=== PATIENT | male | born 1960 | race Caucasian/White ===

== ENCOUNTER 2021-03-13 09:50 | Observation (INO) ==
[2021-03-13 10:07] VITALS: BMI 25.7
--- NOTE | 2021-03-13 11:04 | DR.DIZZY ---
HPI Time seen Time Seen by Provider: 03/13/21 11:04 PCP Primary Care Physician: HPI Comment HPI Comment: PATIENT IS 61YR OLD MALE WITH HISTORY OF DM, HTN, CVA AND PREVIOUS CVA IN ER WITH DIZZINESS, GENERALIZED WEAKNESS, HEADACHE AND NEAR SYNCOPAL EPISODES TIMES 2 WEEKS. DENIES FEVER, DYSURIA, NAUSEA AND VOMITING AND DIARRHEA. Complaint Chief Complaint Doctor Comments: DIZZINESS, HEADACHE AND NEAR SYNCOPAL EPISODE WITH WEAKNESS TIMES 2 WEEKS. Chief Complaint:: PT C/O FEEKING LIKE HE IS GOING TO PASS OUT, DIZZINESS, & GENERALIZED WEAKNESS X2 WEEKS. UPON ARRIVAL PT'S BP IS LOW, PT STATES HE HAS HX OF HTN & TOOK BP MEDS. COVID-19 Coronavirus risk:travel/contact w/high risk person: No Has patient experienced Coronavirus symptoms: No Nurses Notes Reviewed Nurses Notes Review: Yes Source History Provided: Patient and Family Member Mode of Arrival Mode of Arrival: Ambulatory Timing Onset of Chief Complaint: 02/27/21 Came on: Suddenly Duration Duration: Constant Duration: Weeks Location of Weakness Weakness Location: Generalized Context Onset: At rest History of: CVA and DM Stroke Symptoms: Dizziness Severity Severity: Abnormal activity level Modifying factors Worsens: Change in Position Associated signs and symptoms Associated Signs and Symptoms: Near Syncope and Headache Other history Other history: DM, HTN, CAD, CVA. PMH PMH Past Medical History: Yes Past Medical History: Coronary Artery Disease, CVA, Diabetes, Dyslipidemia and Hypertension Past Surgical History: Yes Surgical History: Angioplasty/Stents Family History History of Family Medical Conditions: Yes Family Medical History: Diabetes Mellitus and Cancer Social History Do you use any recreational Drugs:: No Travel Risk Coronavirus risk:travel/contact w/high risk person: No Has patient experienced Coronavirus symptoms: No Infectious screening Have you traveled outside the country in the last 6 months?: No Isolation: Standard ROS Review of Systems Constitutional: See HPI, Weakness and Fatigue; negative Fever Eyes: No Symptoms Reported and See HPI; negative Blurred Vision and Diplopia ENTM: No Symptoms Reported and See HPI; negative Nose Discharge and Nose C ongestion Respiratoy: See HPI and Short of Breath; negative Moist Cough and Wheezing Cardiovascular: See HPI; negative Chest Pain, Edema and Syncope (NEAR SYNCOPE.) Gastrointestinal/Abdominal: No Symptoms Reported and See HPI; negative Abdominal Pain, Diarrhea, Nausea and Vomiting Genitourinary: No Symptoms Reported, See HPI, Dysuria and Hematuria Neurological: See HPI, Headache, Weakness and Dizziness Musculoskeletal: No Symptoms Reported and See HPI; negative Back Pain and Muscle Pain Integumentary: No Symptoms Reported and See HPI; negative Change in Color, Rash and Juandice Hematologic/Lymphatic: No Symptoms Reported and See HPI; negative Easy Bruising Endocrine: No Symptoms Reported and See HPI; negative Increased Thirst and Increased Urine Psychiatric: No Symptoms Reported and See HPI All Other Systems: Reviewed and Negative PE Vital Signs Vitals: Temperature 97.7 F Pulse Rate 61 Respiratory Rate 18 Blood Pressure [Left Arm] 165/84 Blood Pressure 142/73 O2 Sat by Pulse Oximetry 100 General Limitations: No Limitations General Appearance: Alert and In No Apparent Distress Head Head Exam: Normal Inspection, Atraumatic and Normocephalic Eyes Eye exam: Normal Appearance, PERRL and EOMI; negative Scleral Icterus and Conjunctival Injection Pupils: Regular, Round: Bilateral and Reactive: Bilateral Sclera/Conjunctival: Normal Inspection: Bilateral ENT ENT Exam: Normal Exam, Normal Oropharynx, Normal External Ear Exam and TM's Normal Bilaterally Neck Neck Exam: Normal Inspection, Full ROM and Trachea Midline; negative Tenderness Chest Chest Inspection: Normal Inspection and Symmetric Chest Wall Rise; negative Tenderness Respiratory Respiratory Exam: Normal Lung Sounds Bilat; negative Accessory Muscle Use, Chest Wall Tenderness and Respiratory Distress Respiratory Exam: Bilateral: Rhonchi and Lower: Rhonchi Cardiovascular Cardiovascular Exam: Regular Rate, Normal Rhythm and Normal Heart Sounds; negative Systolic Murmur and Diastolic Murmur Abdominal Exam Abdominal Exam: Normal Inspection, Normal Bowel Sounds and Soft; negative Tenderness Rectal Rectal Exam: Deferred Extremeties Extremities Exam: Normal Inspection, Full ROM and Normal Capillary Refill; negative Edema Back Back Exam: Normal Inspection and Full ROM; negative (R) CVA Tenderness and (L) CVA Tenderness Neurologic Neurological Exam: Alert and Oriented X3; negative Motor Sensory Deficit Patient Oriented To: Person, Place and Time Speech: Fluid Speech Cranial Nerve Exam: EOM Function (II, III, IV, ): Normal, Facial Sensation (V): Normal, Facial Palsy (VII): Normal, Gag reflex (XI): Normal and Tongue De viation: Normal Motor Strength - LUE: 5/5 Motor Strength - RUE: 5/5 Motor Strength - LLE: 5/5 Motor Strength - RLE: 5/5 Upper Motor Neuron Exam: Babinski Sign: Normal Psychiatric Psychiatric Exam: Normal Affect and Normal Mood Skin Skin Exam: Dry MDM Additional Information Obtained Additional Information Obtained From: Family Differential Diagnosis Differential Diagnosis: Anemia, CVA, Dehydration, Dysrhythmia, Electrolyte disorder, Hypoglycemia and Myocardial infarction COURSE Treatment Treatment: SEE ORDERS. Consultation Consultation Comments: PATIENT WILL BE ADMITTED TO DR. PEREZ. Education/Counseling Education/Counseling: Patient Educated On: Diagnosis ROR Labs Reviewed Laboratory Results Reviewed?: Yes Result Diagrams: 03/15/21 05:37 03/15/21 05:37 Laboratory: WBC 13.2 X10^3/uL (3.6-10.0) H 03/13/21 11:30 RBC 5.30 X10^6/uL (4.7-6.0) 03/13/21 11:30 Hgb 15.2 g/dL (13.5-18.0) 03/13/21 11:30 Hct 44.1 % (42.0-54.0) 03/13/21 11:30 MCV 83.2 fL (80.0-100.0) 03/13/21 11:30 MCH 28.6 pg (27.0-34.0) 03/13/21 11:30 MCHC 34.4 g/dL (33.0-35.0) 03/13/21 11:30 RDW 13.6 % (11.6-16.5) 03/13/21 11:30 Plt Count 339 X10^3/uL (150.0-450.0) 03/13/21 11:30 MPV 8.4 fL (7.4-11.0) 03/13/21 11:30 Neut % (Auto) 84.9 % (42.0-75.0) H 03/13/21 11:30 Lymph % (Auto) 8.0 % (21.0-51.0) L 03/13/21 11:30 [place] % (Auto) 4.2 % (0.0-13.0) 03/13/21 11:30 Eos % (Auto) 1.2 % (0.9-2.9) 03/13/21 11:30 Baso % (Auto) 1.7 % (0.2-1.0) H 03/13/21 11:30 Neut # (Auto) 11.2 x10^3/uL (2.2-4.8) H 03/13/21 11:30 Lymph # (Auto) 1.1 X10^3/uL (1.3-2.9) L 03/13/21 11:30 [place] # (Auto) 0.6 x10^3/uL (0.3-0.8) 03/13/21 11:30 Eos # (Auto) 0.2 x10^3/uL (0.0-0.2) 03/13/21 11:30 Baso # (Auto) 0.2 X10^3/uL (0.0-0.1) H 03/13/21 11:30 Absolute Nucleated RBC 0.0 /100WBC 03/13/21 11:30 Sodium 136 mmol/L (136-145) 03/13/21 11:30 Corrected Sodium 138 mmol/L (136-145) 03/13/21 11:30 Potassium 4.4 mmol/L (3.5-5.1) 03/13/21 11:30 Chloride 99 mmol/L (98-107) 03/13/21 11:30 Carbon Dioxide 29.5 mmol/L (21-32) 03/13/21 11:30 BUN 27 mg/dL (7-18) H 03/13/21 11:30 Creatinine 1.52 mg/dL (0.70-1.30) H 03/13/21 11:30 Est GFR (MDRD) Af Amer 60 (>60) 03/13/21 11:30 Est GFR (MDRD) Non-Af 49 (>60) L 03/13/21 11:30 Glucose 163 mg/dL (65-99) H 03/13/21 11:30 Calcium 9.4 mg/dL (8.5-10.1) 03/13/21 11:30 Corrected Calcium TNP 03/13/21 11:30 Total Bilirubin 0.80 mg/dL (0.2-1.0) 03/13/21 11:30 AST 14 Units/L (15-37) L 03/13/21 11:30 ALT 24 Units/L (12-78) 03/13/21 11:30 Alkaline Phosphatase 93 Units/L (46-116) 03/13/21 11:30 Creatine Kinase 30 Units/L (39-308) L 03/13/21 11:30 CK-MB (CK-2) < 1.0 ng/mL (0-4.0) 03/13/21 11:30 CK/CKMB % Calc 3.3 % (<4) 03/13/21 11:30 Troponin I < 0.02 ng/mL (0-1.5) 03/13/21 11:30 Total Protein 7.4 g/dL (6.4-8.2) 03/13/21 11:30 Albumin 3.4 g/dL (3.4-5.0) 03/13/21 11:30 Globulin 4.0 g/dL (2.5-4.5) 03/13/21 11:30 Albumin/Globulin Ratio 0.9 Ratio (1.1-2.1) L 03/13/21 11:30 Specimen Type Clean catch urine 03/13/21 11:25 Urine Color Yellow (YELLOW) 03/13/21 11:25 Urine Appearance Clear (CLEAR) 03/13/21 11:25 Urine pH 5.0 (5.0 - 8.0) 03/13/21 11:25 Ur Specific [place] 1.015 (1.000-1.030) 03/13/21 11:25 Urine Protein Negative (NEGATIVE) 03/13/21 11:25 Urine Glucose (UA) Negative (NEGATIVE) 03/13/21 11:25 Urine Ketones Negative (NEGATIVE) 03/13/21 11:25 Urine Occult Blood Negative (NEGATIVE) 03/13/21 11:25 Urine Nitrite Negative (NEGATIVE) 03/13/21 11:25 Urine Bilirubin Negative (NEGATIVE) 03/13/21 11:25 Urine Urobilinogen Normal (NORMAL) 03/13/21 11:25 Ur Leukocyte Esterase Negative (NEGATIVE) 03/13/21 11:25 SARS-CoV-2 (PCR) Negative (NEGATIVE) 03/13/21 13:38 Influenza Type A (PCR) Negative (NEGATIVE) 03/13/21 13:38 Influenza Type B (PCR) Negative (NEGATIVE) 03/13/21 13:38 RSV (PCR) Negative (NEGATIVE) 03/13/21 13:38 XRAY XRAY Interpreted by: Radiologist (REPORT NOTED AND DISCUSSED WITH PATIENT AND .) and Self EKG Rate: 65 [place]: Normal Rhythm: NSR Block: None Hypertrophy: None ST: Nonsp Opioid Opioid Risk Tool Age (Wei box if 16-45): No History of Preadolescent Sexual Abuse: No Total: 0 Total Score Risk Category: Low Risk Copyright: [facility] predicting aberrant behaviors Diagnosis Discharge Problem: Acute dehydration, Generalized weakness, Near syncope Cerebral infarct Qualifiers: Cerebral infarction mechanism: unspecified mechanism Qualified Code(s): I63.9 - Cerebral infarction, unspecified Instructions Instructions: Fall Prevention in the Home, Adult, [id number] Emotional Health After Stroke Warning Signs of a Stroke Stroke Prevention, [id number] Ischemic Stroke, [id number] Discharge After a Stroke Forms: Excuse From Work or School Precautions for COVID19 [facility] Social Distancing
[2021-03-13] MEDS ORDERED: NS 1,000 ML IV 1,000 ML ONE ×2 (11:26→13:38)
[2021-03-13] MEDS ORDERED: NS 1,000 ML IV 1,000 ML IV ONE (11:33)
[2021-03-13 11:39] LABS: BILIRUBIN,URINE NEGATIVE (NEGATIVE); BLOOD/HEMOGLOBIN,URINE NEGATIVE (NEGATIVE); GLUCOSE, URINE NEGATIVE (NEGATIVE); KETONES,URINE NEGATIVE (NEGATIVE); LEUKOCYTE ESTERASE ,URINE NEGATIVE (NEGATIVE); NITRITES,URINE NEGATIVE (NEGATIVE); PROTEIN,URINE NEGATIVE (NEGATIVE); UROBILINOGEN,URINE NORMAL (NORMAL)
[2021-03-13 11:40] LABS: BASOPHILS # (AUTO) 0.2 X10^3/uL (0.0-0.1); BASOPHILS % (AUTO) 1.7 % (0.2-1.0); EOSINOPHILS # (AUTO) 0.2 x10^3/uL (0.0-0.2); EOSINOPHILS % (AUTO) 1.2 % (0.9-2.9); HEMATOCRIT 44.1 % (42.0-54.0); HEMOGLOBIN 15.2 g/dL (13.5-18.0); LYMPHOCYTES # (AUTO) 1.1 X10^3/uL (1.3-2.9); MEAN CORPUSCULAR HEMOGLOBIN 28.6 pg (27.0-34.0); MEAN CORPUSCULAR HGB CONC 34.4 g/dL (33.0-35.0); MEAN CORPUSCULAR VOLUME 83.2 fL (80.0-100.0); MEAN PLATELET VOLUME 8.4 fL (7.4-11.0); MONOCYTES # (AUTO) 0.6 x10^3/uL (0.3-0.8); MONOCYTES % (AUTO) 4.2 % (0.0-13.0); NEUTROPHILS # (AUTO) 11.2 x10^3/uL (2.2-4.8); NEUTROPHILS % (AUTO) 84.9 % (42.0-75.0); PLATELET COUNT 339 X10^3/uL (150.0-450.0); RED CELL DISTRIBUTION WIDTH 13.6 % (11.6-16.5); WHITE BLOOD COUNT 13.2 X10^3/uL (3.6-10.0)
[2021-03-13 11:41] LABS: APPEARANCE,URINE CLEAR (CLEAR); COLOR,URINE YELLOW (YELLOW)
[2021-03-13 12:01] LABS: ALANINE AMINOTRANSFERASE 24 Units/L (12-78); ALBUMIN 3.4 g/dL (3.4-5.0); ALKALINE PHOSPHATASE 93 Units/L (46-116); ASPARTATE AMINO TRANSFERASE 14 Units/L (15-37); BLOOD UREA NITROGEN 27 mg/dL (7-18); CALCIUM 9.4 mg/dL (8.5-10.1); CARBON DIOXIDE 29.5 mmol/L (21-32); CHLORIDE 99 mmol/L (98-107); CKMB % 3.3 % (<4); COR NA(FOR HYPERGLY) 138 mmol/L (136-145); CREATINE KINASE 30 Units/L (39-308); CREATINE KINASE MB < 1.0 ng/mL (0-4.0); CREATININE 1.52 mg/dL (0.70-1.30); SODIUM 136 mmol/L (136-145); TOTAL PROTEIN 7.4 g/dL (6.4-8.2); TROPONIN I < 0.02 ng/mL (0-1.5); eGFR NON BLACK RACES 49 (>60)
--- NOTE | 2021-03-13 12:02 | CT ---
HISTORY:Dizziness, near-syncope, weakness, hypotensionStudy: CT brain without contrastComparison:NoneTechnique:Multiple axial images of the brain were obtained without administration of IV contrast. Dose reduction techniques including Automated Exposure Control (AEC) and adjustment of mA and kV were utilized.Findings:There is cerebral volume loss with nonspecific white matter hypoattenuation that can be associated with chronic microvascular ischemic changes. There are chronic appearing lacunar infarcts in the left basal ganglia and right cem. There is recent appearing infarction, possibly acute or subacute in medial right temporal occipital region. Ultrasound could be performed for further evaluation. No evidence of acute hemorrhage, midline shift, mass effect or abnormal extra-axial fluid collection. The ventricular system is symmetric and nondilated.The soft tissues and osseous structures are unremarkable. The visualized paranasal sinuses are clear.IMPRESSION:Recent appearing (acute versus subacute) infarct in the right temporal occipital region. MRI can be performed for further evaluation. No evidence of hemorrhage.Chronic ischemic changes as described.Electronically signed by: AMANDA ANGEL (Mar 13, 2021 12:00:28)
[2021-03-13] MEDS: NS 1,000 ML IV 1,000 ML IV SCH ×2 (13:42→22:07)
--- NOTE | 2021-03-13 14:06 | RAD ---
HISTORY:Near syncope, dizziness, weakness, hypotensionStudy: Single view chestComparison:03/01/2021Findings:Stable dual-chamber pacemaker. No infiltrate, effusion, or pneumothorax identified .Cardiac and mediastinal contours are within normal limits .The soft tissues are intact .IMPRESSION:1.No acute cardiopulmonary abnormality.Electronically signed by: AMANDA ANGEL (Mar 13, 2021 14:03:31)
[2021-03-13] MEDS: TYLENOL 325 MG TAB PO PRN (17:28)
[2021-03-13 18:13] LABS: CKMB % 3.5 % (<4); CREATINE KINASE 29 Units/L (39-308); CREATINE KINASE MB < 1.0 ng/mL (0-4.0); TROPONIN I < 0.02 ng/mL (0-1.5)
[2021-03-14 00:20] LABS: CKMB % 3.6 % (<4); CREATINE KINASE 28 Units/L (39-308); CREATINE KINASE MB < 1.0 ng/mL (0-4.0); TROPONIN I < 0.02 ng/mL (0-1.5)
[2021-03-14 05:24] LABS: BASOPHILS # (AUTO) 0.1 X10^3/uL (0.0-0.1); BASOPHILS % (AUTO) 0.6 % (0.2-1.0); EOSINOPHILS # (AUTO) 0.2 x10^3/uL (0.0-0.2); EOSINOPHILS % (AUTO) 1.8 % (0.9-2.9); HEMATOCRIT 37.4 % (42.0-54.0); HEMOGLOBIN 13.1 g/dL (13.5-18.0); LYMPHOCYTES # (AUTO) 2.5 X10^3/uL (1.3-2.9); LYMPHOCYTES % (AUTO) 26.3 % (21.0-51.0); MEAN CORPUSCULAR HGB CONC 35.1 g/dL (33.0-35.0); MEAN CORPUSCULAR VOLUME 82.6 fL (80.0-100.0); MEAN PLATELET VOLUME 8.7 fL (7.4-11.0); MONOCYTES # (AUTO) 0.7 x10^3/uL (0.3-0.8); MONOCYTES % (AUTO) 7.9 % (0.0-13.0); NEUTROPHILS # (AUTO) 5.9 x10^3/uL (2.2-4.8); NEUTROPHILS % (AUTO) 63.4 % (42.0-75.0); PLATELET COUNT 255 X10^3/uL (150.0-450.0); RED BLOOD COUNT 4.53 X10^6/uL (4.7-6.0); WHITE BLOOD COUNT 9.3 X10^3/uL (3.6-10.0)
[2021-03-14] MEDS: NS 1,000 ML IV 1,000 ML IV SCH ×4 (05:24→21:20)
[2021-03-14 05:42] LABS: ALANINE AMINOTRANSFERASE 17 Units/L (12-78); ALBUMIN 2.8 g/dL (3.4-5.0); ALKALINE PHOSPHATASE 73 Units/L (46-116); ASPARTATE AMINO TRANSFERASE 13 Units/L (15-37); BLOOD UREA NITROGEN 20 mg/dL (7-18); CALCIUM 8.2 mg/dL (8.5-10.1); CARBON DIOXIDE 26.2 mmol/L (21-32); CHLORIDE 103 mmol/L (98-107); CHOL/HDL RATIO 3.7 (0.0-5.0); CHOLESTEROL 111 mg/dL (0-200); COR CA(FOR HYPOALB) 9.2 mg/dL (8.5-10.1); COR NA(FOR HYPERGLY) 139 mmol/L (136-145); CREATININE 1.08 mg/dL (0.70-1.30); HDL CHOLESTEROL 30 mg/dL (40-60); MAGNESIUM 1.3 mg/dL (1.7-2.9); SODIUM 138 mmol/L (136-145); TRIGLYCERIDES 101 mg/dL (0-150); eGFR NON BLACK RACES > 60 (>60)
[2021-03-14] MEDS ORDERED: LR 1,000 ML IV 1,000 ML IV ONE (08:56)
[2021-03-14] MEDS ORDERED: PERCOCET TAB 5/325 MG PO PRN (08:58)
[2021-03-14] MEDS ORDERED: COZAAR PO SCH (09:00)
[2021-03-14] MEDS ORDERED: GLUCOPHAGE XR 24-HR PO SCH (09:00)
[2021-03-14] MEDS: COZAAR PO SCH (09:13)
[2021-03-14] MEDS: ASPIRIN EC 81 MG PO SCH (09:14)
[2021-03-14] MEDS: ACTOS PO SCH (09:19)
[2021-03-14] MEDS ORDERED: ACTOS ONE (09:19)
[2021-03-14] MEDS: GLUCOPHAGE XR 24-HR PO SCH (21:20)
[2021-03-15] MEDS ORDERED: POTASSIUM CHLORIDE LIQ 20 MEQ UDC PO PRN (05:16)
[2021-03-15] MEDS ORDERED: K-RIDER 10 MEQ/NS 100 ML 10 MEQ/100 ML BAG IV PRN (05:16)
[2021-03-15] MEDS ORDERED: KLOR-CON PO PRN (05:16)
[2021-03-15] MEDS ORDERED: K-DUR TAB 20 MEQ PO PRN (05:16)
[2021-03-15] MEDS ORDERED: MICRO K EXTEN CAP 10 MEQ PO PRN (05:16)
[2021-03-15] MEDS ORDERED: POTASSIUM CHL 60 MEQ/NS 0.45% 500 ML IV PRN (05:16)
[2021-03-15] MEDS ORDERED: POTASSIUM CHL 40 MEQ/NS 0.45% 500 ML IV PRN (05:16)
[2021-03-15] MEDS: NS 1,000 ML IV 1,000 ML IV SCH (05:47)
[2021-03-15] MEDS: MAGNESIUM SULFATE 1 GRAM/100 mL PREMIX 1 G/100 ML BAG IV PRN ×3 (05:48→09:06)
[2021-03-15 06:14] LABS: BASOPHILS # (AUTO) 0.1 X10^3/uL (0.0-0.1); BASOPHILS % (AUTO) 0.8 % (0.2-1.0); EOSINOPHILS # (AUTO) 0.1 x10^3/uL (0.0-0.2); EOSINOPHILS % (AUTO) 1.4 % (0.9-2.9); HEMATOCRIT 37.1 % (42.0-54.0); LYMPHOCYTES # (AUTO) 1.9 X10^3/uL (1.3-2.9); LYMPHOCYTES % (AUTO) 24.2 % (21.0-51.0); MEAN CORPUSCULAR HEMOGLOBIN 28.6 pg (27.0-34.0); MEAN CORPUSCULAR HGB CONC 34.9 g/dL (33.0-35.0); MEAN CORPUSCULAR VOLUME 81.9 fL (80.0-100.0); MEAN PLATELET VOLUME 8.7 fL (7.4-11.0); MONOCYTES # (AUTO) 0.6 x10^3/uL (0.3-0.8); MONOCYTES % (AUTO) 7.6 % (0.0-13.0); NEUTROPHILS # (AUTO) 5.1 x10^3/uL (2.2-4.8); PLATELET COUNT 260 X10^3/uL (150.0-450.0); RED BLOOD COUNT 4.53 X10^6/uL (4.7-6.0); RED CELL DISTRIBUTION WIDTH 13.1 % (11.6-16.5); WHITE BLOOD COUNT 7.8 X10^3/uL (3.6-10.0)
[2021-03-15 06:29] LABS: ALANINE AMINOTRANSFERASE 19 Units/L (12-78); ALBUMIN 2.6 g/dL (3.4-5.0); ALKALINE PHOSPHATASE 71 Units/L (46-116); ASPARTATE AMINO TRANSFERASE 13 Units/L (15-37); BLOOD UREA NITROGEN 13 mg/dL (7-18); CALCIUM 8.3 mg/dL (8.5-10.1); CARBON DIOXIDE 28.5 mmol/L (21-32); CHLORIDE 103 mmol/L (98-107); COR CA(FOR HYPOALB) 9.4 mg/dL (8.5-10.1); COR NA(FOR HYPERGLY) 141 mmol/L (136-145); CREATININE 0.95 mg/dL (0.70-1.30); SODIUM 140 mmol/L (136-145); eGFR NON BLACK RACES > 60 (>60)
[2021-03-15] MEDS: ACTOS PO SCH (08:08)
[2021-03-15] MEDS: GLUCOPHAGE XR 24-HR PO SCH (08:09)
[2021-03-15] MEDS: COZAAR PO SCH (08:09)
[2021-03-15] MEDS: ASPIRIN EC 81 MG PO SCH (08:09)
[2021-03-15] MEDS: TYLENOL 325 MG TAB PO PRN (08:09)
[2021-03-15] MEDS ORDERED: TOPROL XL PO STA (10:27)
[2021-03-15 12:11] VITALS: BP 142/66
== END 2021-03-15 13:00 | disposition home or self-care (01) ==
LOC: SUPCPDRO → ER 10:00 → MED/SURG 10:00
PROVIDERS: ADMIT Obstetrics & Gynecology Obstetrics; ATTEND Obstetrics & Gynecology Obstetrics
DX: E11.65 Type 2 diabetes mellitus with hyperglycemia; Z20.822 Contact with and (suspected) exposure to COVID-19; E86.0 Dehydration; Z95.0 Presence of cardiac pacemaker; I10 Essential (primary) hypertension; Z86.73 Personal history of transient ischemic attack (TIA), and cerebral infarction without residual deficits; I95.1 Orthostatic hypotension; I63.89 Other cerebral infarction